=== PATIENT | female | born 1930 | race Caucasian/White ===

== ENCOUNTER 2017-05-24 11:28 | Outpatient (CLI) | payer MEDICARE, BC ==
--- NOTE | 2017-05-24 13:48 | CT ---
HIGH RESOLUTION CHEST CT WITHOUT CONTRAST: Comparison: None. History: Productive cough and bronchiectasis. Technique: Multiple contiguous axial images were obtained in a high resolution chest CT without cont rast. Thin slices were taken at large intervals in the spine and prone positions. FINDINGS: The heart is normal in size. No hilar or mediastinal lymphadenopathy are appreciated on this limited noncontrast examination. Calcifications are seen in the aorta. Emphysematous changes are seen in the lungs. No significant increased interstitial thickening is see n in the lung. Bronchiectasis is seen in the anterior aspect of the right middle lobe. No other area s of bronchiectasis are present. No suspicious pulmonary nodules are seen. The patient is status post cholecystectomy. The visualized subdiaphragmatic structures are unremarka ble. Degenerative changes are seen in the spine. The chest wall soft tissues are unremarkable. IMPRESSION: 1. Mild bronchiectasis in the right middle lobe. 2. Emphysema. POS: [facility]
== END 2017-05-24 11:29 | disposition home or self-care (01) ==
LOC: CT 11:28
PROVIDERS: ATTEND Internal Medicine Critical Care Medicine
DX: J47.9 Bronchiectasis, uncomplicated (principal); J43.9 Emphysema, unspecified
CPT/HCPCS: 71250

== ENCOUNTER 2017-06-03 09:10 | Emergency (ER) | payer MEDICARE, BC ==
[2017-06-03] MEDS ORDERED: Ondansetron ODT 4 MG TAB ONE (10:38)
--- NOTE | 2017-06-03 11:59 | RAD ---
THREE VIEWS RIGHT WRIST: HISTORY: Right wrist pain after fall. TECHNIQUE: AP, lateral, and oblique views of the right wrist are obtained. 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 There is a partially impacted transverse fracture of the distal right radius, compatible with a Neo es type fracture, with some impaction of proximal and distal fracture fragments. IMPRESSION: Impacted and mildly posteriorly displaced distal right radial Colles fracture. POS: [facility]
--- NOTE | 2017-06-03 12:11 | RAD ---
RIGHT HAND THREE VIEWS: HISTORY: An 87-year-old female with right wrist and arm pain following a fall. FINDINGS: There is severe bony demineralization, as well as some generalized arthrosis and degenerative change . There is no acute fracture or dislocation of the hand proper. There is a slightly comminuted fra cture of the radial metaepiphysis. There is some associated impaction. 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 IMPRESSION: 1. No acute fracture or dislocation of the hand proper. 2. Slightly comminuted, minimally impacted distal radial fracture. 3. 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 POS: [facility]
[2017-06-03] MEDS ORDERED: HYDROcodone/Acetaminophen 5/325 mg Tablet ONE (12:13)
== END 2017-06-03 13:15 | disposition home or self-care (01) ==
LOC: ERS 09:10
DX: S52.531A Colles' fracture of right radius, initial encounter for closed fracture (principal); E11.9 Type 2 diabetes mellitus without complications; K21.9 Gastro-esophageal reflux disease without esophagitis; E78.5 Hyperlipidemia, unspecified; I10 Essential (primary) hypertension; M06.9 Rheumatoid arthritis, unspecified; J45.909 Unspecified asthma, uncomplicated; F32.9 Major depressive disorder, single episode, unspecified; Z79.84 Long term (current) use of oral hypoglycemic drugs; Z79.899 Other long term (current) drug therapy; W18.30XA Fall on same level, unspecified, initial encounter; Y92.89 Other specified places as the place of occurrence of the external cause
CPT/HCPCS: 29125; 96372; J2270; Q0162

== ENCOUNTER 2017-08-08 17:15 | Outpatient (CLI) | payer MEDICARE, BC | END 2017-08-08 17:16 | disposition home or self-care (01) | LOC: BICMAMMO 17:15 | PROVIDERS: ATTEND Internal Medicine Rheumatology | DX: Z13.820 Encounter for screening for osteoporosis (principal); M81.0 Age-related osteoporosis without current pathological fracture | CPT/HCPCS: 77080 ==

== ENCOUNTER 2017-09-07 15:05 | Outpatient (CLI) | payer MEDICARE, BC | END 2017-09-07 15:06 | disposition home or self-care (01) | LOC: LABBT 15:05 | PROVIDERS: ATTEND Surgery | DX: Z01.818 Encounter for other preprocedural examination (principal); N76.4 Abscess of vulva | CPT/HCPCS: 93005; 93010 ==

== ENCOUNTER → 2017-09-08 | Day surgery (SDC) | payer MEDICARE, BC ==
[~2017-09-08] MED LIST: CEFAZOLIN/Water 2 GM/20 ML SYRINGE ONE; Dexamethasone 20 MG/5 ML VIAL ONE; Fentanyl 100 MCG/2 ML VIAL ONE; Glycopyrrolate 0.2 MG/ML 5 ML SYRINGE ONE; Lidocaine 1% PF 5 ML VIAL ONE; Lidocaine 2% w/Epinephrine 1:200K 20 ML VIAL ONE; Midazolam HCl 2 mg/2 ml Vial ONE; Ondansetron HCl/PF 4 MG/2 ML Vial ONE; Propofol 200 MG/20 ML VIAL ONE
[2017-09-08 10:14] LABS: Hemoglobin 12.1 g/dL (12.0-16.0); Mean Corpuscular HGB CONC 32.3 g/dL (32.0-36.0); Mean Corpuscular Hemoglobin 29.9 pg (27.0-31.0); Mean Corpuscular Volume 92.6 fl (81.0-99.0); Mean Platelet Volume 7.9 fL (7.4-10.4); Platelet Count 217 thou/uL (130-400); Red Blood Cell (RBC) Count 4.05 mill/uL (4.20-5.40); White Blood Cell (WBC) Count 6.5 thou/uL (4.8-10.8)
[2017-09-08 10:34] LABS: Band 1 % (5-11); Lymphocytes 21 % (21-51); MDiff Complete? YES; Monocytes 7 % (0-10); Neutrophil 66 % (42-75); PLT Morphology Comment Appears Adequate; Reactive Lymphocytes 5 % (0-10)
--- NOTE | 2017-09-08 12:56 | OP ---
PREOPERATIVE DIAGNOSIS: Right labial abscess. SURGEON: Олег Louis M.D. PROCEDURE PERFORMED: Incision and drainage of right labial abscess. INDICATIONS: An 87-year-old female with a 2-month history of draining abscess right labia. FINDINGS: The cavity was well drained. There was just opened up widely and irrigated. PROCEDURE IN DETAIL: After informed consent was obtained, the patient was taken to the operating arthur m and given general mask anesthesia, placed in the lithotomy position. Her groin area was prepped an d draped in the usual fashion. Local anesthesia infiltrated as with 0.5% Marcaine. An elliptical in cision was performed. The subcu divided sharply. The indurated tissue was excised. The cavity was cultured. Hemostasis achieved with electrocautery. The wound thoroughly irrigated and packed open w ith Betadine gauze and damp to dry, sterile bandage applied. The patient tolerated the procedure wel l and transferred to recovery in good condition. Sponge and needle count verified correct x2.
== END ==
LOC: SDC 08:42
PROVIDERS: ATTEND Surgery
PROC: 0U9MXZZ Drainage of Vulva, External Approach (ICD-10-PCS; principal; 2017-09-08)
DX: N76.4 Abscess of vulva (principal); N39.46 Mixed incontinence; E11.9 Type 2 diabetes mellitus without complications; G30.9 Alzheimer's disease, unspecified; F02.80 Dementia in other diseases classified elsewhere, unspecified severity, without behavioral disturbance, psychotic disturbance, mood disturbance, and anxiety; F41.9 Anxiety disorder, unspecified; F32.9 Major depressive disorder, single episode, unspecified; M06.9 Rheumatoid arthritis, unspecified; M81.0 Age-related osteoporosis without current pathological fracture; I87.2 Venous insufficiency (chronic) (peripheral); J45.909 Unspecified asthma, uncomplicated; G47.30 Sleep apnea, unspecified; Z79.84 Long term (current) use of oral hypoglycemic drugs; Z79.51 Long term (current) use of inhaled steroids; Z79.2 Long term (current) use of antibiotics; Z79.899 Other long term (current) drug therapy; Z88.1 Allergy status to other antibiotic agents; Z88.2 Allergy status to sulfonamides; Z88.8 Allergy status to other drugs, medicaments and biological substances; Z98.41 Cataract extraction status, right eye; Z98.42 Cataract extraction status, left eye; Z96.1 Presence of intraocular lens; Z96.651 Presence of right artificial knee joint; Z90.49 Acquired absence of other specified parts of digestive tract; Z90.710 Acquired absence of both cervix and uterus; Z90.722 Acquired absence of ovaries, bilateral; Z90.79 Acquired absence of other genital organ(s); Z98.890 Other specified postprocedural states; Z85.3 Personal history of malignant neoplasm of breast; Z92.3 Personal history of irradiation
CPT/HCPCS: 85025; 87070; 87077; 87186; 87205; J0131; J1100; J2001; J2250; J2405; J2704; J3010

== ENCOUNTER 2017-10-20 14:28 | Outpatient (CLI) | payer MEDICARE, BC | END 2017-10-20 14:29 | disposition home or self-care (01) | LOC: BICMAMMO 14:28 | PROVIDERS: ATTEND Internal Medicine | DX: Z12.31 Encounter for screening mammogram for malignant neoplasm of breast (principal) | CPT/HCPCS: 77063; 77067 ==

== ENCOUNTER 2018-01-16 09:05 | Emergency (ER) | payer MEDICARE, BC | END 2018-01-16 13:42 | disposition home or self-care (01) | LOC: ERS 09:05 | DX: R13.10 Dysphagia, unspecified (principal); E11.9 Type 2 diabetes mellitus without complications; K21.9 Gastro-esophageal reflux disease without esophagitis; E78.5 Hyperlipidemia, unspecified; I10 Essential (primary) hypertension; J45.909 Unspecified asthma, uncomplicated; F32.9 Major depressive disorder, single episode, unspecified | CPT/HCPCS: 93005 ==

== ENCOUNTER 2018-03-29 14:36 | Emergency (ER) | payer MEDICARE, BC | END 2018-03-29 15:48 | disposition home or self-care (01) | LOC: ERS 14:36 | DX: K21.9 Gastro-esophageal reflux disease without esophagitis (principal); J04.0 Acute laryngitis; E11.9 Type 2 diabetes mellitus without complications; E78.5 Hyperlipidemia, unspecified; I10 Essential (primary) hypertension; J45.909 Unspecified asthma, uncomplicated; F32.9 Major depressive disorder, single episode, unspecified; Z79.899 Other long term (current) drug therapy | CPT/HCPCS: 99283 ==

== ENCOUNTER 2018-03-30 13:49 | Outpatient (CLI) | payer MEDICARE, BC | END 2018-03-30 13:50 | disposition home or self-care (01) | LOC: BICRAD 13:49 | PROVIDERS: ATTEND Internal Medicine | DX: R05 Cough (principal); R49.0 Dysphonia; I77.810 Thoracic aortic ectasia | CPT/HCPCS: 71046 ==

== ENCOUNTER 2018-07-31 01:58 | Emergency (ER) | payer MEDICARE, BC ==
[2018-07-31 03:06] LABS: #Basophils 0.1 thou/uL (0.0-0.2); #Eosinphils 0.3 thou/uL (0.0-0.7); #Lymphocytes 1.9 thou/uL (1.20-3.40); #Neutrophils 4.5 thou/uL (1.40-6.50); %Basophils 1.3 % (0.0-1.0); %Eosinophils 3.6 % (0.0-10.0); %Lymphocytes 24.2 % (21.0-51.0); %Monocytes 13.3 % (0.0-10.0); %Neutrophils 57.6 % (42.0-75.0); Mean Corpuscular HGB CONC 34.3 g/dL (32.0-36.0); Mean Corpuscular Hemoglobin 32.1 pg (27.0-31.0); Mean Corpuscular Volume 93.5 fL (78.0-98.0); Mean Platelet Volume 7.9 fL (7.4-10.4); Platelet Count 196 thou/uL (130-400); RBC Distribution Width 11.8 % (11.5-14.5); Red Blood Cell (RBC) Count 4.06 mill/uL (4.20-5.40); White Blood Cell (WBC) Count 7.8 thou/uL (4.8-10.8)
[2018-07-31 03:41] LABS: ALT (SGPT) 18 U/L (8-55); AST (SGOT) 21 U/L (5-34); Albumin 4.1 g/dL (3.4-4.8); Alkaline Phosphatase 79 U/L (40-150); Anion Gap 11 mmol/L (10-20); BUN (Urea Nitrogen) 19 mg/dL (9.8-20.1); Bilirubin, Total 0.3 mg/dL (0.2-1.2); Calc. Creatinine Clearance 0 mL/min (70-130); Calcium 9.9 mg/dL (7.8-10.44); Carbon Dioxide 27 mmol/L (23-31); Chloride 107 mmol/L (98-107); Estimated GFR-MDRD 67; Globulin 2.4 g/dL (2.4-3.5); Glucose 110 mg/dL (83-110); Magnesium 2.2 mg/dL (1.6-2.6); Potassium 4.1 mmol/L (3.5-5.1); Protein, Total 6.5 g/dL (6.0-8.3); Sodium 141 mmol/L (136-145)
[2018-07-31 03:53] LABS: Bilirubin Negative (Negative); Blood, Urine Negative (Negative); Clarity CLOUDY (Clear); Glucose, Urine (Dipstick) Negative (Negative); Leukocyte Large (Negative); Nitrite Negative (Negative); Protein, Urine (Dipstick) Trace mg/dL (Neg-Trace); Specific Gravity, Urine 1.028 (1.002-1.036); Urobilinogen 0.2 mg/dL (0.2-1.0); pH, Urine 6.5 (5.0-9.0)
[2018-07-31 03:56] LABS: Bacteria/HPF None Seen HPF (None Seen); Hyaline Casts/LPF 4-6 HYALINE CAST LPF (0-3 Hyaline); Pathc Cast-AUWi Flag 1.16 (0-2.49); Squamous Epithelial 0-3 HPF (0-3)
--- NOTE | 2018-07-31 08:27 | CT ---
PRELIMINARY REPORT/[facility]/EMERGENTY AFTER-HOURS PROCEDURE CT Cervical Spine Without Intravenous Contrast EXAM DATE/TIME: 07/31/2018 2:33 AM CLINICAL HISTORY: 88 years old, female; Injury or trauma; Fall; Initial encounter; Abrasion; Patient HX: Fall from [facility], PT hit back of her head, no loc TECHNIQUE: Axial computed tomography images of the cervical spine without intravenous contrast. COMPARISON: No relevant prior studies available. FINDINGS: Vertebrae: No fracture. Discs/Spinal canal/Neural foramina: No spinal stenosis. No neural foraminal narrowing. Soft tissues: Unremarkable. Thyroid: Multiple subcentimeter thyroid nodules. Lungs: Lung apices are normal. IMPRESSION: 1. Multiple subcentimeter thyroid nodules. 2. No fracture. Thank you for allowing us to participate in the care of your patient. Dictated and Authenticated by: Alexandru Bryant MD 07/31/2018 2:48 AM Central Time ([place] & [place]) FINAL REPORT EMERGENCY AFTER HOURS NONCONTRAST CT CERVICAL SPINE: Date: 07/31/18 HISTORY: Injury after fall. Hit head. TECHNIQUE: Contiguous axial CT images are obtained through the cervical spine from the skull base to the T1-2 le slim. Sagittal and coronal reformatted images are provided. IMPRESSION: 1. Multilevel degenerative changes with multilevel moderate and severe degrees of neural foraminal n arrowing related to prominent facet hypertrophic changes and posterior osteophyte formation. 2. Anterior subluxation of C4 on C5, likely attributable to prominent degenerative changes at this l evel. No additional level of subluxation is seen. There is slight reversal of the normal cervical bebeto dotic curvature centered at the level of the C5 vertebral body. 3. No acute fracture visualized. 4. Suggestion of fusion of the C5 and C6 vertebral bodies. 5. Subcentimeter hypodense nodules in each lobe of the thyroid gland. 6. Prevertebral soft tissues are within normal limits. 7. Mild scarring left lung apex. Findings are in agreement with the preliminary report by Noel. POS: [facility]
--- NOTE | 2018-07-31 08:29 | CT ---
PRELIMINARY REPORT/[facility]/EMERGENTY AFTER-HOURS PROCEDURE CT Head Without Intravenous Contrast EXAM DATE/TIME: 07/31/2018 2:35 AM CLINICAL HISTORY: 88 years old, female; Injury or trauma; Fall; Initial encounter; Abrasion; Head, generalized; Patient HX: Fall from standing, PT hit back of her head, no loc TECHNIQUE: Axial computed tomography images of the head/brain without intravenous contrast. COMPARISON: No relevant prior studies available. FINDINGS: Brain: Volume loss and chronic small vessel ischemic change. No brain edema. No intracranial hemorrha ge. Ventricles: Normal. No ventriculomegaly. Bones/joints: Normal. No acute fracture. Sinuses: Normal as visualized. No acute sinusitis. Mastoid air cells: Normal as visualized. No mastoid effusion. Soft tissues: Normal. IMPRESSION: No acute brain findings. Thank you for allowing us to participate in the care of your patient. Dictated and Authenticated by: Alexandru Bryant MD 07/31/2018 2:45 AM Central Time ([place] & [place]) FINAL REPORT BY DR. CRUZ EMERGENCY AFTER HOURS STUDY CT BRAIN NONCONTRAST: HISTORY: 88-year-old female status post acute head trauma from fall. FINDINGS: There is no midline shift or any other mass effect. There is no evidence of acute intracranial hemor rhage, large cortical infarct, obstructive hydrocephalus, or extraaxial fluid collection. The calvar ium is intact. There is diffuse parenchymal volume loss. There are low attenuation areas in the whi te matter. These are nonspecific, but in a patient of this age, they are probably chronic ischemic w todd matter changes due to microvascular atherosclerosis. This report agrees with the preliminary report by Noel. IMPRESSION: 1. No acute intracranial findings. 2. Involutional changes and chronic ischemic white matter changes. bhaskar POS: [facility]
--- NOTE | 2018-07-31 08:45 | RAD ---
UPRIGHT FRONTAL CHEST RADIOGRAPH: Date: 07/31/18 COMPARISON: 07/09/10 and 03/30/18. HISTORY: Fall, trauma, pain. FINDINGS: Old lateral right-sided rib fractures. No pneumothorax, pleural fluid, lobar consolidation, or alveol ar edema. Postoperative clips in the left axillary region. IMPRESSION: No acute findings. Stable appearance of the chest. POS: [facility]
== END 2018-07-31 04:14 | disposition home or self-care (01) ==
LOC: ERS 01:58
DX: S06.0X0A Concussion without loss of consciousness, initial encounter (principal); S00.93XA Contusion of unspecified part of head, initial encounter; K21.9 Gastro-esophageal reflux disease without esophagitis; E78.5 Hyperlipidemia, unspecified; I10 Essential (primary) hypertension; J45.909 Unspecified asthma, uncomplicated; F32.9 Major depressive disorder, single episode, unspecified; Z79.899 Other long term (current) drug therapy; W01.190A Fall on same level from slipping, tripping and stumbling with subsequent striking against furniture, initial encounter
CPT/HCPCS: 36415; 70450; 71045; 72125; 80053; 81003; 81015; 83735; 85025; 93005

== ENCOUNTER 2018-09-26 13:27 | Outpatient (CLI) | payer MEDICARE, BC ==
--- NOTE | 2018-09-26 16:02 | RAD ---
PA AND LATERAL CHEST: HISTORY: Cough. COMPARISON: 07/31/2018 FINDINGS: The heart size is enlarged. There is elevation of the right hemidiaphragm. The lungs are well expan ded without focal areas of consolidation, pneumothoraces, or pleural effusions. There are degenerati ve changes in the spine. Postop changes are seen in the lumbar spine. IMPRESSION: No radiographic evidence of acute cardiopulmonary process. POS: [facility]
== END 2018-09-26 13:28 | disposition home or self-care (01) ==
LOC: BICRAD 13:27
PROVIDERS: ATTEND Internal Medicine
DX: R05 Cough (principal)
CPT/HCPCS: 71046

== ENCOUNTER 2018-10-23 14:05 | Outpatient (CLI) | payer MEDICARE, BC | END 2018-10-23 14:06 | disposition home or self-care (01) | LOC: BICMAMMO 14:05 | PROVIDERS: ATTEND Internal Medicine | DX: Z12.31 Encounter for screening mammogram for malignant neoplasm of breast (principal); Z85.3 Personal history of malignant neoplasm of breast | CPT/HCPCS: 77063; 77067 ==

== ENCOUNTER 2019-01-22 12:59 | Emergency (ER) | payer MEDICARE, BC ==
--- NOTE | 2019-01-22 13:54 | RAD ---
Chest 2 views HISTORY: Cough. COMPARISON: 09/26/2018. FINDINGS: Cardiac silhouette is upper limits of normal in size and pulmonary vasculature is unremarka ble. Mediastinum is midline. Right hemidiaphragm remains lobulated and slightly elevated anteriorly. No confluent airspace consolidation, pneumothorax, or pleural fluid. Lungs remain hyperin flated. Metallic clips at the left axilla. IMPRESSION: Pulmonary hyperinflation and other chronic-type findings are stable. No active cardiopulm onary abnormalities are demonstrated.
== END 2019-01-22 15:52 | disposition home or self-care (01) ==
LOC: ERS 12:59
DX: J20.9 Acute bronchitis, unspecified (principal); F32.9 Major depressive disorder, single episode, unspecified; K21.9 Gastro-esophageal reflux disease without esophagitis; E78.5 Hyperlipidemia, unspecified; J45.909 Unspecified asthma, uncomplicated; M06.9 Rheumatoid arthritis, unspecified; I10 Essential (primary) hypertension; Z79.899 Other long term (current) drug therapy
CPT/HCPCS: 71046; 94640; J7620

== ENCOUNTER 2019-05-06 09:28 | Emergency (ER) | payer MEDICARE, BC | END 2019-05-06 10:52 | disposition home or self-care (01) | LOC: ERS 09:28 | DX: J32.9 Chronic sinusitis, unspecified (principal); K21.9 Gastro-esophageal reflux disease without esophagitis; E78.5 Hyperlipidemia, unspecified; I10 Essential (primary) hypertension; J45.909 Unspecified asthma, uncomplicated; F32.9 Major depressive disorder, single episode, unspecified; Z79.899 Other long term (current) drug therapy; Z79.51 Long term (current) use of inhaled steroids | CPT/HCPCS: 99283 ==

== ENCOUNTER 2021-04-29 08:50 | Observation (INO) | payer MEDICARE, BC ==
[2021-04-29 09:55] LABS: #Basophils 0.1 thou/uL (0.0-0.2); #Eosinphils 0.2 thou/uL (0.0-0.7); #Lymphocytes 1.7 thou/uL (1.20-3.40); #Monocytes 0.9 thou/uL (0.11-0.59); #Neutrophils 3.9 thou/uL (1.40-6.50); %Eosinophils 3.5 % (0.0-10.0); %Lymphocytes 24.7 % (21.0-51.0); %Monocytes 13.4 % (0.0-10.0); %Neutrophils 57.4 % (42.0-75.0); Hemoglobin 12.9 g/dL (12.0-16.0); Mean Corpuscular HGB CONC 33.2 g/dL (32.0-36.0); Mean Corpuscular Hemoglobin 31.4 pg (27.0-31.0); Mean Corpuscular Volume 94.5 fL (78.0-98.0); Platelet Count 239 thou/uL (130-400); RBC Distribution Width 12.6 % (11.5-14.5); Red Blood Cell (RBC) Count 4.12 mill/uL (4.20-5.40); White Blood Cell (WBC) Count 6.7 thou/uL (4.8-10.8)
[2021-04-29 10:15] LABS: ALT (SGPT) 17 U/L (8-55); AST (SGOT) 14 U/L (5-34); Albumin 3.7 g/dL (3.4-4.8); Alkaline Phosphatase 85 U/L (40-110); Anion Gap 12 mmol/L (10-20); BUN (Urea Nitrogen) 19 mg/dL (9.8-20.1); Bilirubin, Total 0.5 mg/dL (0.2-1.2); Calc. Creatinine Clearance 0 mL/min (70-130); Calcium 9.7 mg/dL (7.8-10.44); Carbon Dioxide 29 mmol/L (23-31); Chloride 107 mmol/L (98-107); Globulin 2.4 g/dL (2.4-3.5); Glucose 105 mg/dL (83-110); Potassium 4.2 mmol/L (3.5-5.1); Protein, Total 6.1 g/dL (5.8-8.1); Sodium 144 mmol/L (136-145)
[2021-04-29] MEDS ORDERED: Ondansetron ODT 4 MG TAB PO PRN (12:26)
[2021-04-29] MEDS ORDERED: Ondansetron PF 4 MG/2 ML Vial IVP PRN (12:26)
[2021-04-29] MEDS ORDERED: Acetaminophen 325 MG TAB PO PRN (12:26)
[2021-04-29] MEDS ORDERED: Acetaminophen 650 MG Suppository PR PRN (12:26)
[2021-04-29] MEDS ORDERED: hydrALAZINE 20 MG/ML VIAL SLOW IVP PRN ×2 (12:31→16:50)
[2021-04-29 13:03] LABS: Troponin I Less than 0.010 ng/mL (< 0.028)
[2021-04-29 15:10] VITALS: BMI 41.5
[2021-04-29 16:50] LABS: Troponin I Less than 0.010 ng/mL (< 0.028)
[2021-04-29] MEDS ORDERED: Atorvastatin Calcium 40 MG TAB PO SCH (21:00)
[2021-04-30 04:04] LABS: #Eosinphils 0.2 thou/uL (0.0-0.7); #Lymphocytes 1.8 thou/uL (1.20-3.40); #Neutrophils 4.9 thou/uL (1.40-6.50); %Basophils 0.4 % (0.0-1.0); %Eosinophils 3.1 % (0.0-10.0); %Lymphocytes 22.8 % (21.0-51.0); %Monocytes 12.5 % (0.0-10.0); %Neutrophils 61.2 % (42.0-75.0); Hemoglobin 12.8 g/dL (12.0-16.0); Mean Corpuscular HGB CONC 32.9 g/dL (32.0-36.0); Mean Corpuscular Hemoglobin 31.1 pg (27.0-31.0); Mean Corpuscular Volume 94.5 fL (78.0-98.0); Mean Platelet Volume 8.4 fL (7.4-10.4); Platelet Count 242 thou/uL (130-400); RBC Distribution Width 12.8 % (11.5-14.5); Red Blood Cell (RBC) Count 4.11 mill/uL (4.20-5.40)
[2021-04-30 04:26] LABS: Anion Gap 8 mmol/L (10-20); BUN (Urea Nitrogen) 19 mg/dL (9.8-20.1); Calc. Creatinine Clearance 72 mL/min (70-130); Calcium 9.7 mg/dL (7.8-10.44); Carbon Dioxide 29 mmol/L (23-31); Chloride 108 mmol/L (98-107); Cholesterol 133 mg/dl (< 200 Desired); Glucose 118 mg/dL (83-110); HDL Cholesterol 44 mg/dL (>60 Neg Risk); LDL Cholesterol, Calculated 73 mg/dL; Potassium 3.9 mmol/L (3.5-5.1); Sodium 141 mmol/L (136-145); Triglycerides 80 mg/dL (Less than 150)
[2021-04-30] MEDS ORDERED: Losartan 25 MG TAB PO SCH (09:00)
[2021-04-30] MEDS ORDERED: Non-Formulary Item 1 EACH (Biotin [Biotin] 10,000 MCG Capsule) PO SCH (09:00)
[2021-04-30 16:00] VITALS: BP 139/67; TEMP 98.2
[2021-04-30] MEDS ORDERED: Atorvastatin Calcium 20 MG TAB PO SCH (21:00)
== END 2021-04-30 17:38 ==
LOC: ERS 08:50 → 2NO 11:49
PROVIDERS: ADMIT Internal Medicine; ATTEND Hospitalist
DX: I62.03 Nontraumatic chronic subdural hemorrhage (principal); R41.82 Altered mental status, unspecified; I10 Essential (primary) hypertension; E78.5 Hyperlipidemia, unspecified; K21.9 Gastro-esophageal reflux disease without esophagitis; M06.9 Rheumatoid arthritis, unspecified; J45.909 Unspecified asthma, uncomplicated; F03.90 Unspecified dementia, unspecified severity, without behavioral disturbance, psychotic disturbance, mood disturbance, and anxiety; G92 Toxic encephalopathy; D50.9 Iron deficiency anemia, unspecified; E66.01 Morbid (severe) obesity due to excess calories; Z68.41 Body mass index [BMI] 40.0-44.9, adult; Z79.83 Long term (current) use of bisphosphonates; Z79.84 Long term (current) use of oral hypoglycemic drugs; Z79.899 Other long term (current) drug therapy; Z88.1 Allergy status to other antibiotic agents; Z88.2 Allergy status to sulfonamides; Z88.6 Allergy status to analgesic agent; Z88.8 Allergy status to other drugs, medicaments and biological substances
CPT/HCPCS: 70450; 70551; 71045; 80048; 80061; 84484 ×2; 85025; 93005; 93306; 95712; 95819; 95957; 96374; 96376; 97139 ×3; 97535; 99285; G0378 ×3; 36415; 80053; 84443; J0360

== ENCOUNTER 2021-06-29 09:21 | Observation (INO) | payer MEDICARE, BC ==
[2021-06-29 10:21] LABS: Bacteria/HPF None Seen HPF (None Seen); Bilirubin Negative (Negative); Blood, Urine Negative (Negative); Clarity Clear (Clear); Glucose, Urine (Dipstick) Normal (Negative); Ketone, Urine Negative (Negative); Leukocyte 75 Leu/uL (Negative); Nitrite Negative (Negative); Protein, Urine (Dipstick) Negative (Neg-Trace); RBC/HPF 0-3 HPF (0-3); Specific Gravity, Urine 1.021 (1.002-1.036); Squamous Epithelial 0-3 HPF (0-3); Urobilinogen Normal mg/dL (Less than 2); pH, Urine 6.5 (5.0-9.0)
[2021-06-29] MEDS ORDERED: cefTRIAXone\\ROCEPHIN 2 GM VIAL ONE (10:54)
[2021-06-29 11:08] LABS: #Basophils 0.1 thou/uL (0.0-0.2); #Eosinphils 0.2 thou/uL (0.0-0.7); #Lymphocytes 1.8 thou/uL (1.20-3.40); #Monocytes 0.8 thou/uL (0.11-0.59); #Neutrophils 5.1 thou/uL (1.40-6.50); %Basophils 0.8 % (0.0-1.0); %Eosinophils 2.6 % (0.0-10.0); %Lymphocytes 22.2 % (21.0-51.0); %Monocytes 10.3 % (0.0-10.0); %Neutrophils 64.2 % (42.0-75.0); Mean Corpuscular HGB CONC 33.1 g/dL (32.0-36.0); Mean Corpuscular Hemoglobin 31.2 pg (27.0-31.0); Mean Corpuscular Volume 94.3 fL (78.0-98.0); Platelet Count 261 thou/uL (130-400); RBC Distribution Width 12.3 % (11.5-14.5); Red Blood Cell (RBC) Count 4.16 mill/uL (4.20-5.40); White Blood Cell (WBC) Count 7.9 thou/uL (4.8-10.8)
[2021-06-29 11:26] LABS: ALT (SGPT) 17 U/L (8-55); AST (SGOT) 16 U/L (5-34); Albumin 3.7 g/dL (3.4-4.8); Alkaline Phosphatase 70 U/L (40-110); Anion Gap 11 mmol/L (10-20); BUN (Urea Nitrogen) 16 mg/dL (9.8-20.1); Bilirubin, Total 0.4 mg/dL (0.2-1.2); Calc. Creatinine Clearance 0 mL/min (70-130); Calcium 9.4 mg/dL (7.8-10.44); Carbon Dioxide 27 mmol/L (23-31); Chloride 107 mmol/L (98-107); Glucose 93 mg/dL (83-110); Potassium 4.3 mmol/L (3.5-5.1); Protein, Total 5.7 g/dL (5.8-8.1); Sodium 141 mmol/L (136-145)
[2021-06-29] MEDS ORDERED: Bisacodyl 10 MG SUPP PR PRN (12:33)
[2021-06-29] MEDS ORDERED: Bisacodyl 5 MG TAB PO PRN (12:33)
[2021-06-29] MEDS ORDERED: Senokot S 8.6-50 MG TAB PO PRN (12:33)
[2021-06-29] MEDS ORDERED: Ondansetron PF 4 MG/2 ML Vial IVP PRN (12:33)
[2021-06-29] MEDS ORDERED: Acetaminophen 325 MG TAB PO PRN (12:33)
[2021-06-29] MEDS ORDERED: HumaLOG 300 UNITS/3 ML VIAL SC PRN (12:53)
[2021-06-29] MEDS ORDERED: Dextrose 5% in Water 1,000 ML IV PRN (12:53)
[2021-06-29] MEDS ORDERED: Dextrose 50% Abboject 50 ML SYRINGE SLOW IVP PRN (12:53)
[2021-06-29 14:34] VITALS: BMI 39.0
[2021-06-29 15:01] LABS: INR-International Normal Ratio 1.1; Prothrombin Time 13.9 sec (12.0-14.7)
[2021-06-29 15:02] LABS: PTT 30.4 sec (22.9-36.1)
[2021-06-29 15:26] LABS: SARS-CoV-2 NAA Rapid Test Not Detected (NotDetected)
[2021-06-29] MEDS ORDERED: traZODone HCl 50 MG TAB PO PRN (19:03)
[2021-06-29] MEDS ORDERED: Melatonin 3 MG TAB PO PRN (20:48)
[2021-06-29] MEDS ORDERED: Mometasone 200 MCG/Formoterol 5 MCG 120 PUFF INHALER INH SCH (21:00)
[2021-06-29] MEDS ORDERED: Atorvastatin Calcium 40 MG TAB PO SCH (21:00)
[2021-06-30 06:22] LABS: #Eosinphils 0.1 thou/uL (0.0-0.7); #Lymphocytes 1.6 thou/uL (1.20-3.40); #Monocytes 0.8 thou/uL (0.11-0.59); #Neutrophils 4.7 thou/uL (1.40-6.50); %Basophils 0.2 % (0.0-1.0); %Lymphocytes 22.1 % (21.0-51.0); %Monocytes 11.2 % (0.0-10.0); %Neutrophils 64.5 % (42.0-75.0); Hemoglobin 12.7 g/dL (12.0-16.0); Mean Corpuscular HGB CONC 32.1 g/dL (32.0-36.0); Mean Corpuscular Hemoglobin 30.5 pg (27.0-31.0); Mean Corpuscular Volume 95.2 fL (78.0-98.0); Mean Platelet Volume 7.8 fL (7.4-10.4); Platelet Count 250 thou/uL (130-400); RBC Distribution Width 12.3 % (11.5-14.5); Red Blood Cell (RBC) Count 4.18 mill/uL (4.20-5.40); White Blood Cell (WBC) Count 7.3 thou/uL (4.8-10.8)
[2021-06-30 06:29] LABS: Hemoglobin A1c 5.9 % (4.0-6.0)
[2021-06-30 06:46] LABS: ALT (SGPT) 18 U/L (8-55); AST (SGOT) 16 U/L (5-34); Albumin 3.6 g/dL (3.4-4.8); Alkaline Phosphatase 69 U/L (40-110); Anion Gap 10 mmol/L (10-20); BUN (Urea Nitrogen) 15 mg/dL (9.8-20.1); Bilirubin, Total 0.4 mg/dL (0.2-1.2); Calc. Creatinine Clearance 71 mL/min (70-130); Calcium 8.8 mg/dL (7.8-10.44); Carbon Dioxide 27 mmol/L (23-31); Cardiac Risk 3.4 (Less than 4.5); Chloride 108 mmol/L (98-107); Cholesterol 122 mg/dl (< 200 Desired); Globulin 1.9 g/dL (2.4-3.5); Glucose 109 mg/dL (83-110); HDL Cholesterol 36 mg/dL (>60 Neg Risk); LDL Cholesterol, Calculated 68 mg/dL; Magnesium 2.2 mg/dL (1.6-2.6); Phosphorus 3.1 mg/dL (2.3-4.7); Protein, Total 5.5 g/dL (5.8-8.1); Sodium 141 mmol/L (136-145); Triglycerides 91 mg/dL (Less than 150)
[2021-06-30] MEDS ORDERED: Ferrous Gluconate 324 MG TAB PO SCH (08:00)
[2021-06-30] MEDS ORDERED: Folic Acid 1 MG TAB PO SCH (09:00)
[2021-06-30] MEDS ORDERED: Losartan 25 MG TAB PO SCH (09:00)
[2021-06-30] MEDS ORDERED: Multivit, Therapeutic 1 TAB PO SCH (09:00)
[2021-06-30] MEDS ORDERED: Cyanocobalamin (Vitamin B-12) 1,000 MCG TAB PO SCH (09:00)
[2021-06-30] MEDS ORDERED: Cholecalciferol 1,000 UNITS (25 MCG) TAB PO SCH (09:00)
[2021-06-30] MEDS ORDERED: PARoxetine 20 MG TAB PO SCH (09:00)
[2021-06-30] MEDS ORDERED: hydrALAZINE 20 MG/ML VIAL SLOW IVP PRN (11:51)
[2021-06-30] MEDS ORDERED: Carvedilol 3.125 MG TAB PO SCH ×2 (14:00→17:00)
[2021-06-30 15:53] VITALS: TEMP 98.7
[2021-06-30 16:48] VITALS: BP 201/92
[2021-06-30] MEDS ORDERED: Aspirin 81 mg Enteric Coated Tablet PO SCH (17:30)
== END 2021-06-30 18:00 | disposition home or self-care (01) ==
LOC: ERS 09:21 → SUATTDRO 09:21 → NEURO 12:21
PROVIDERS: ADMIT Family Medicine; ATTEND Family Medicine
DX: G93.40 Encephalopathy, unspecified (principal); I62.03 Nontraumatic chronic subdural hemorrhage; E11.9 Type 2 diabetes mellitus without complications; M06.9 Rheumatoid arthritis, unspecified; D50.9 Iron deficiency anemia, unspecified; G30.9 Alzheimer's disease, unspecified; F02.80 Dementia in other diseases classified elsewhere, unspecified severity, without behavioral disturbance, psychotic disturbance, mood disturbance, and anxiety; J45.909 Unspecified asthma, uncomplicated; M81.0 Age-related osteoporosis without current pathological fracture; I87.2 Venous insufficiency (chronic) (peripheral); K21.9 Gastro-esophageal reflux disease without esophagitis; I11.9 Hypertensive heart disease without heart failure; E78.5 Hyperlipidemia, unspecified; G47.30 Sleep apnea, unspecified; I47.1 Supraventricular tachycardia; Z79.83 Long term (current) use of bisphosphonates; Z79.899 Other long term (current) drug therapy; Z88.2 Allergy status to sulfonamides; Z88.6 Allergy status to analgesic agent; Z88.8 Allergy status to other drugs, medicaments and biological substances; Z20.822 Contact with and (suspected) exposure to COVID-19
CPT/HCPCS: 51701; 70450; 70551; 71045; 80053; 80061; 82962 ×2; 83036; 83605; 83735; 84100; 84484; 85025; 85610; 85730; 86850; 86900; 86901; 87086; 93005; 93880; 95712; 95819; 95957; 96365; 96375; 97110; 97116; 97139 ×3; 99285; G0378 ×3; U0002; 36415; 36416; 81003; 81015; 84443; J0360; J0696

== ENCOUNTER 2021-08-24 12:53 | Inpatient (IN) | payer MEDICARE, BC ==
[2021-08-24] MEDS ORDERED: Vancomycin 1 GM/200 ML BAG ONE (16:06)
[2021-08-24 16:17] LABS: #Eosinphils 0.1 thou/uL (0.0-0.7); #Lymphocytes 2.4 thou/uL (1.20-3.40); #Monocytes 2.1 thou/uL (0.11-0.59); #Neutrophils 12.1 thou/uL (1.40-6.50); %Basophils 0.1 % (0.0-1.0); %Eosinophils 0.4 % (0.0-10.0); %Lymphocytes 14.5 % (21.0-51.0); %Monocytes 12.6 % (0.0-10.0); %Neutrophils 72.4 % (42.0-75.0); Hemoglobin 12.5 g/dL (12.0-16.0); Mean Corpuscular HGB CONC 34.7 g/dL (32.0-36.0); Mean Corpuscular Hemoglobin 32.6 pg (27.0-31.0); Mean Corpuscular Volume 93.8 fL (78.0-98.0); Mean Platelet Volume 8.3 fL (7.4-10.4); Platelet Count 200 thou/uL (130-400); RBC Distribution Width 12.6 % (11.5-14.5); Red Blood Cell (RBC) Count 3.83 mill/uL (4.20-5.40); White Blood Cell (WBC) Count 16.6 thou/uL (4.8-10.8)
[2021-08-24 16:35] LABS: ALT (SGPT) 14 U/L (8-55); AST (SGOT) 16 U/L (5-34); Albumin 3.5 g/dL (3.4-4.8); Alkaline Phosphatase 81 U/L (40-110); Anion Gap 11 mmol/L (10-20); BUN (Urea Nitrogen) 16 mg/dL (9.8-20.1); Bilirubin, Total 0.8 mg/dL (0.2-1.2); Calc. Creatinine Clearance 0 mL/min (70-130); Calcium 9.6 mg/dL (7.8-10.44); Carbon Dioxide 30 mmol/L (23-31); Chloride 98 mmol/L (98-107); Globulin 2.8 g/dL (2.4-3.5); Glucose 127 mg/dL (83-110); Potassium 3.4 mmol/L (3.5-5.1); Protein, Total 6.3 g/dL (5.8-8.1); Sodium 136 mmol/L (136-145)
[2021-08-24] MEDS ORDERED: Cefepime 2 GM VIAL ONE (17:05)
[2021-08-24] MEDS ORDERED: Sodium Chloride 0.9% 100 ML ONE (17:05)
[2021-08-24] MEDS ORDERED: Acetaminophen 325 MG TAB PO PRN (17:15)
[2021-08-24] MEDS ORDERED: Ondansetron PF 4 MG/2 ML Vial IVP PRN (17:15)
[2021-08-24] MEDS ORDERED: Ondansetron ODT 4 MG TAB SL PRN (17:15)
[2021-08-24] MEDS: Cefepime 2 GM in Sodium Chloride 0.9% 100 ML IVPB SCH (20:28)
[2021-08-24 23:21] VITALS: BMI 35.2
[2021-08-25] MEDS: Cefepime 2 GM in Sodium Chloride 0.9% 100 ML IVPB SCH ×2 (02:30→07:47)
[2021-08-25] MEDS ORDERED: Vancomycin 1 GM in Premix Bag 1 BAG IVPB SCH (04:00)
[2021-08-25] MEDS ORDERED: Albuterol Sulfate 2.5 mg/3 ml Neb NEB PRN (06:52)
[2021-08-25] MEDS ORDERED: Non-Formulary Item 1 EACH (Carboxymethylcellulos/Glycerin [Refresh Optive Eye Drops] 15 M EA EYE PRN (06:52)
[2021-08-25] MEDS ORDERED: Polyvinyl Alcohol 1.4%/Povidone 0.6% Opth Drops EA EYE PRN (07:33)
[2021-08-25] MEDS: PARoxetine 20 MG TAB PO SCH (07:53)
[2021-08-25] MEDS: Carvedilol 3.125 MG TAB PO SCH ×2 (07:53→17:42)
[2021-08-25] MEDS: Losartan 25 MG TAB PO SCH (07:54)
[2021-08-25] MEDS: Furosemide 40 MG TAB PO SCH (07:54)
[2021-08-25 08:21] LABS: #Basophils 0.1 thou/uL (0.0-0.2); #Eosinphils 0.3 thou/uL (0.0-0.7); #Lymphocytes 1.4 thou/uL (1.20-3.40); #Monocytes 1.4 thou/uL (0.11-0.59); #Neutrophils 8.3 thou/uL (1.40-6.50); %Basophils 0.6 % (0.0-1.0); %Eosinophils 2.9 % (0.0-10.0); %Lymphocytes 11.9 % (21.0-51.0); %Monocytes 12.4 % (0.0-10.0); %Neutrophils 72.2 % (42.0-75.0); Hemoglobin 11.8 g/dL (12.0-16.0); Mean Corpuscular HGB CONC 33.1 g/dL (32.0-36.0); Mean Corpuscular Hemoglobin 30.9 pg (27.0-31.0); Mean Corpuscular Volume 93.5 fL (78.0-98.0); Mean Platelet Volume 8.3 fL (7.4-10.4); Platelet Count 182 thou/uL (130-400); RBC Distribution Width 12.5 % (11.5-14.5); Red Blood Cell (RBC) Count 3.81 mill/uL (4.20-5.40); White Blood Cell (WBC) Count 11.6 thou/uL (4.8-10.8)
[2021-08-25 08:35] LABS: Anion Gap 8 mmol/L (10-20); BUN (Urea Nitrogen) 15 mg/dL (9.8-20.1); Calc. Creatinine Clearance 76 mL/min (70-130); Calcium 9.2 mg/dL (7.8-10.44); Carbon Dioxide 29 mmol/L (23-31); Chloride 102 mmol/L (98-107); Glucose 101 mg/dL (83-110); Magnesium 1.9 mg/dL (1.6-2.6); Potassium 3.1 mmol/L (3.5-5.1); Sodium 136 mmol/L (136-145)
[2021-08-25] MEDS ORDERED: Budesonide 0.25 MG/2 ML NEB NEB SCH (09:00)
[2021-08-25] MEDS ORDERED: Arformoterol 15 MCG/2 ML NEB NEB SCH (09:00)
[2021-08-25] MEDS ORDERED: Non-Formulary Item 1 EACH (Losartan Potassium [Cozaar] 100 MG Tablet) PO SCH (09:00)
[2021-08-25] MEDS ORDERED: Electrolyte Replacement Protocol 1 EACH FS SCH (09:45)
[2021-08-25] MEDS ORDERED: Potassium Chloride 20 MEQ TAB PO SCH ×2 (10:00→14:45)
[2021-08-25] MEDS: Polyethylene Glycol 3350 17 GM Packet PO SCH (10:53)
[2021-08-25] MEDS ORDERED: Magnesium 2 GM/50 ML 2 GM in Premix Bag 1 BAG IVPB SCH (11:00)
[2021-08-25 12:45] LABS: SARS-CoV-2 PCR by NAA Not Detected (NotDetected)
[2021-08-25] MEDS ORDERED: Potassium Chloride 10 MEQ in Premix Bag 1 BAG IVPB SCH (13:00)
[2021-08-25] MEDS: Potassium Chloride 10 MEQ in Premix Bag 1 BAG IVPB SCH ×2 (13:03→14:42)
[2021-08-25] MEDS ORDERED: SUGAMMADEX SODIUM 200 MG/2 ML VIAL ONE (14:08)
[2021-08-25] MEDS ORDERED: Fentanyl 100 MCG/2 ML VIAL ONE ×2 (14:08→14:58)
[2021-08-25] MEDS ORDERED: Famotidine/PF 20 mg/2ml Vial ONE (14:09)
[2021-08-25] MEDS ORDERED: Rocuronium Bromide 10 MG/ML (10ML VIAL) ONE (15:25)
[2021-08-25] MEDS ORDERED: Dexamethasone 20 MG/5 ML VIAL ONE (15:25)
[2021-08-25] MEDS ORDERED: Lidocaine 1% PF 5 ML VIAL ONE (15:25)
[2021-08-25] MEDS ORDERED: Ondansetron PF 4 MG/2 ML Vial ONE (15:25)
[2021-08-25] MEDS ORDERED: PROPOFOL 200 MG/20 ML VIAL ONE (15:25)
[2021-08-25] MEDS ORDERED: ePHEDrine 50 MG/ML VIAL ONE (15:25)
[2021-08-25] MEDS: Arformoterol 15 MCG/2 ML NEB NEB SCH (18:24)
[2021-08-25] MEDS: Budesonide 0.25 MG/2 ML NEB NEB SCH (18:24)
[2021-08-25] MEDS: Atorvastatin Calcium 40 MG TAB PO SCH (20:48)
[2021-08-25] MEDS: Donepezil HCl 5 MG TAB PO SCH (20:48)
[2021-08-26] MEDS: VANCOMYCIN 1.25 GM/250 ML BAG 1.25 GM in Premix Bag 1 BAG IVPB SCH (03:37)
[2021-08-26 03:50] LABS: #Lymphocytes 1.2 thou/uL (1.20-3.40); #Monocytes 0.6 thou/uL (0.11-0.59); #Neutrophils 7.7 thou/uL (1.40-6.50); %Basophils 0.1 % (0.0-1.0); %Eosinophils 0.1 % (0.0-10.0); %Lymphocytes 12.5 % (21.0-51.0); %Monocytes 6.7 % (0.0-10.0); %Neutrophils 80.6 % (42.0-75.0); Hemoglobin 11.6 g/dL (12.0-16.0); Mean Corpuscular HGB CONC 33.9 g/dL (32.0-36.0); Mean Corpuscular Hemoglobin 31.4 pg (27.0-31.0); Mean Corpuscular Volume 92.8 fL (78.0-98.0); Mean Platelet Volume 8.3 fL (7.4-10.4); Platelet Count 199 thou/uL (130-400); RBC Distribution Width 12.5 % (11.5-14.5); Red Blood Cell (RBC) Count 3.68 mill/uL (4.20-5.40); White Blood Cell (WBC) Count 9.6 thou/uL (4.8-10.8)
[2021-08-26 04:13] LABS: Anion Gap 12 mmol/L (10-20); BUN (Urea Nitrogen) 15 mg/dL (9.8-20.1); Calc. Creatinine Clearance 74 mL/min (70-130); Calcium 8.9 mg/dL (7.8-10.44); Carbon Dioxide 25 mmol/L (23-31); Chloride 105 mmol/L (98-107); Glucose 127 mg/dL (83-110); Potassium 3.7 mmol/L (3.5-5.1); Sodium 138 mmol/L (136-145)
[2021-08-26 04:14] LABS: Vancomycin, Random 8.5 ug/mL (See Comment)
[2021-08-26] MEDS: Budesonide 0.25 MG/2 ML NEB NEB SCH ×2 (07:10→18:16)
[2021-08-26] MEDS: Arformoterol 15 MCG/2 ML NEB NEB SCH ×2 (07:11→18:15)
[2021-08-26] MEDS: Losartan 25 MG TAB PO SCH (10:11)
[2021-08-26] MEDS: Carvedilol 3.125 MG TAB PO SCH ×2 (10:11→17:35)
[2021-08-26] MEDS: PARoxetine 20 MG TAB PO SCH (10:12)
[2021-08-26] MEDS: Polyethylene Glycol 3350 17 GM Packet PO SCH (10:12)
[2021-08-26] MEDS: Furosemide 40 MG TAB PO SCH (10:12)
[2021-08-26] MEDS: Cefepime 2 GM in Sodium Chloride 0.9% 100 ML IVPB SCH (10:17)
[2021-08-26] MEDS: Donepezil HCl 5 MG TAB PO SCH (20:20)
[2021-08-26] MEDS: Atorvastatin Calcium 40 MG TAB PO SCH (20:20)
[2021-08-27] MEDS: HYDROcodone/Acetaminophen 5/325 mg Tablet PO PRN ×2 (03:32→12:23)
[2021-08-27 04:52] LABS: Vancomycin, Trough 10.5 ug/mL
[2021-08-27] MEDS: VANCOMYCIN 1.25 GM/250 ML BAG 1.25 GM in Premix Bag 1 BAG IVPB SCH (05:06)
[2021-08-27] MEDS: Budesonide 0.25 MG/2 ML NEB NEB SCH ×2 (06:54→19:02)
[2021-08-27] MEDS: Arformoterol 15 MCG/2 ML NEB NEB SCH ×2 (06:54→19:02)
[2021-08-27] MEDS: Polyethylene Glycol 3350 17 GM Packet PO SCH (08:44)
[2021-08-27] MEDS: PARoxetine 20 MG TAB PO SCH (08:44)
[2021-08-27] MEDS: Furosemide 40 MG TAB PO SCH (08:45)
[2021-08-27] MEDS: Cefepime 2 GM in Sodium Chloride 0.9% 100 ML IVPB SCH (08:45)
[2021-08-27] MEDS: Losartan 25 MG TAB PO SCH (08:45)
[2021-08-27] MEDS: Carvedilol 3.125 MG TAB PO SCH ×2 (08:45→16:31)
[2021-08-27] MEDS: Clindamycin 150 MG CAP PO SCH (16:30)
[2021-08-27] MEDS: Donepezil HCl 5 MG TAB PO SCH (20:21)
[2021-08-27] MEDS: Atorvastatin Calcium 40 MG TAB PO SCH (20:21)
[2021-08-28] MEDS: Clindamycin 150 MG CAP PO SCH ×3 (00:01→16:34)
[2021-08-28] MEDS: Arformoterol 15 MCG/2 ML NEB NEB SCH ×2 (07:34→19:34)
[2021-08-28] MEDS: Budesonide 0.25 MG/2 ML NEB NEB SCH ×2 (07:35→19:35)
[2021-08-28 08:34] LABS: #Eosinphils 0.4 thou/uL (0.0-0.7); #Lymphocytes 1.9 thou/uL (1.20-3.40); #Monocytes 1.5 thou/uL (0.11-0.59); #Neutrophils 7.1 thou/uL (1.40-6.50); %Basophils 0.4 % (0.0-1.0); %Eosinophils 3.8 % (0.0-10.0); %Lymphocytes 17.5 % (21.0-51.0); %Monocytes 13.8 % (0.0-10.0); %Neutrophils 64.6 % (42.0-75.0); Mean Corpuscular HGB CONC 33.4 g/dL (32.0-36.0); Mean Corpuscular Hemoglobin 31.1 pg (27.0-31.0); Mean Corpuscular Volume 93.2 fL (78.0-98.0); Platelet Count 219 thou/uL (130-400); RBC Distribution Width 12.5 % (11.5-14.5); Red Blood Cell (RBC) Count 3.85 mill/uL (4.20-5.40)
[2021-08-28] MEDS: PARoxetine 20 MG TAB PO SCH (08:35)
[2021-08-28] MEDS: Carvedilol 3.125 MG TAB PO SCH ×2 (08:35→16:34)
[2021-08-28] MEDS: Furosemide 40 MG TAB PO SCH (08:35)
[2021-08-28] MEDS: Losartan 25 MG TAB PO SCH (08:35)
[2021-08-28] MEDS: Polyethylene Glycol 3350 17 GM Packet PO SCH (08:36)
[2021-08-28 09:00] LABS: ALT (SGPT) 15 U/L (8-55); AST (SGOT) 14 U/L (5-34); Albumin 3.1 g/dL (3.4-4.8); Alkaline Phosphatase 79 U/L (40-110); Anion Gap 12 mmol/L (10-20); BUN (Urea Nitrogen) 15 mg/dL (9.8-20.1); Bilirubin, Total 0.4 mg/dL (0.2-1.2); Calc. Creatinine Clearance 81 mL/min (70-130); Calcium 9.5 mg/dL (7.8-10.44); Carbon Dioxide 27 mmol/L (23-31); Chloride 105 mmol/L (98-107); Globulin 2.4 g/dL (2.4-3.5); Glucose 98 mg/dL (83-110); Potassium 3.1 mmol/L (3.5-5.1); Protein, Total 5.5 g/dL (5.8-8.1); Sodium 141 mmol/L (136-145)
[2021-08-28] MEDS ORDERED: Potassium Chloride 20 MEQ TAB PO SCH (13:00)
[2021-08-28] MEDS: Atorvastatin Calcium 40 MG TAB PO SCH (20:57)
[2021-08-28] MEDS: Donepezil HCl 5 MG TAB PO SCH (20:57)
[2021-08-28] MEDS: HYDROcodone/Acetaminophen 5/325 mg Tablet PO PRN ×2 (20:59)
[2021-08-29] MEDS: Clindamycin 150 MG CAP PO SCH ×4 (00:29→23:36)
[2021-08-29] MEDS: Budesonide 0.25 MG/2 ML NEB NEB SCH ×2 (06:50→23:56)
[2021-08-29] MEDS: Arformoterol 15 MCG/2 ML NEB NEB SCH ×2 (06:50→23:56)
[2021-08-29] MEDS: Losartan 25 MG TAB PO SCH (08:22)
[2021-08-29] MEDS: Furosemide 40 MG TAB PO SCH (08:22)
[2021-08-29] MEDS: Carvedilol 3.125 MG TAB PO SCH ×2 (08:22→18:04)
[2021-08-29] MEDS: PARoxetine 20 MG TAB PO SCH (08:23)
[2021-08-29] MEDS: Polyethylene Glycol 3350 17 GM Packet PO SCH ×2 (08:23→08:24)
[2021-08-29] MEDS: HYDROcodone/Acetaminophen 5/325 mg Tablet PO PRN ×2 (10:44→21:01)
[2021-08-29] MEDS ORDERED: Electrolyte Replacement Protocol 1 EACH FS SCH (19:30)
[2021-08-29] MEDS: Saccharomyces boulardii 250 MG CAP PO SCH (21:02)
[2021-08-29] MEDS: Donepezil HCl 5 MG TAB PO SCH (21:02)
[2021-08-29] MEDS: Atorvastatin Calcium 40 MG TAB PO SCH (21:02)
[2021-08-30] MEDS: Arformoterol 15 MCG/2 ML NEB NEB SCH ×2 (07:34→23:44)
[2021-08-30] MEDS: Budesonide 0.25 MG/2 ML NEB NEB SCH ×2 (07:34→23:45)
[2021-08-30 07:44] LABS: #Eosinphils 0.6 thou/uL (0.0-0.7); #Lymphocytes 2.1 thou/uL (1.20-3.40); #Neutrophils 4.6 thou/uL (1.40-6.50); %Basophils 0.3 % (0.0-1.0); %Eosinophils 6.7 % (0.0-10.0); %Lymphocytes 25.8 % (21.0-51.0); %Monocytes 11.5 % (0.0-10.0); %Neutrophils 55.6 % (42.0-75.0); Hemoglobin 11.7 g/dL (12.0-16.0); Mean Corpuscular HGB CONC 31.7 g/dL (32.0-36.0); Mean Corpuscular Hemoglobin 29.8 pg (27.0-31.0); Mean Platelet Volume 7.9 fL (7.4-10.4); Platelet Count 298 thou/uL (130-400); RBC Distribution Width 12.5 % (11.5-14.5); Red Blood Cell (RBC) Count 3.94 mill/uL (4.20-5.40); White Blood Cell (WBC) Count 8.3 thou/uL (4.8-10.8)
[2021-08-30 08:00] LABS: Anion Gap 11 mmol/L (10-20); BUN (Urea Nitrogen) 10 mg/dL (9.8-20.1); Calc. Creatinine Clearance 75 mL/min (70-130); Calcium 9.4 mg/dL (7.8-10.44); Carbon Dioxide 32 mmol/L (23-31); Chloride 102 mmol/L (98-107); Glucose 108 mg/dL (83-110); Magnesium 1.8 mg/dL (1.6-2.6); Phosphorus 3.6 mg/dL (2.3-4.7); Potassium 3.3 mmol/L (3.5-5.1); Sodium 142 mmol/L (136-145)
[2021-08-30] MEDS: Losartan 25 MG TAB PO SCH (08:14)
[2021-08-30] MEDS ORDERED: Potassium Chloride 20 MEQ TAB PO SCH (08:15)
[2021-08-30] MEDS ORDERED: Magnesium 2 GM/50 ML 2 GM in Premix Bag 1 BAG IVPB SCH (08:15)
[2021-08-30] MEDS: Clindamycin 150 MG CAP PO SCH ×3 (08:15→23:33)
[2021-08-30] MEDS: PARoxetine 20 MG TAB PO SCH (08:15)
[2021-08-30] MEDS: Carvedilol 3.125 MG TAB PO SCH ×2 (08:15→17:12)
[2021-08-30] MEDS ORDERED: Electrolyte Replacement Protocol FS PRN (08:15)
[2021-08-30] MEDS: Polyethylene Glycol 3350 17 GM Packet PO SCH (08:22)
[2021-08-30] MEDS: Saccharomyces boulardii 250 MG CAP PO SCH (21:31)
[2021-08-30] MEDS: Atorvastatin Calcium 40 MG TAB PO SCH (21:31)
[2021-08-30] MEDS: Acetaminophen 325 MG TAB PO PRN (21:31)
[2021-08-30] MEDS: Donepezil HCl 5 MG TAB PO SCH (21:31)
[2021-08-30] MEDS: HYDROcodone/Acetaminophen 5/325 mg Tablet PO PRN (23:33)
[2021-08-31] MEDS: Arformoterol 15 MCG/2 ML NEB NEB SCH ×2 (07:38→18:50)
[2021-08-31] MEDS: Budesonide 0.25 MG/2 ML NEB NEB SCH ×2 (07:39→18:50)
[2021-08-31] MEDS: Losartan 25 MG TAB PO SCH (08:26)
[2021-08-31] MEDS: Clindamycin 150 MG CAP PO SCH ×2 (08:26→15:57)
[2021-08-31] MEDS: Carvedilol 3.125 MG TAB PO SCH ×2 (08:27→16:01)
[2021-08-31] MEDS: PARoxetine 20 MG TAB PO SCH (08:27)
[2021-08-31] MEDS: Polyethylene Glycol 3350 17 GM Packet PO SCH (08:27)
[2021-08-31] MEDS: Atorvastatin Calcium 40 MG TAB PO SCH (19:53)
[2021-08-31] MEDS: Donepezil HCl 5 MG TAB PO SCH (19:53)
[2021-08-31] MEDS: Docusate 100 MG CAP PO PRN (19:54)
[2021-08-31] MEDS: Saccharomyces boulardii 250 MG CAP PO SCH (19:54)
[2021-08-31] MEDS: Acetaminophen 325 MG TAB PO PRN (19:54)
[2021-09-01] MEDS: Clindamycin 150 MG CAP PO SCH ×3 (01:10→15:59)
[2021-09-01] MEDS: HYDROcodone/Acetaminophen 5/325 mg Tablet PO PRN ×2 (01:10→10:32)
[2021-09-01] MEDS: Budesonide 0.25 MG/2 ML NEB NEB SCH ×2 (07:20→20:21)
[2021-09-01] MEDS: Arformoterol 15 MCG/2 ML NEB NEB SCH ×2 (07:20→20:21)
[2021-09-01] MEDS ORDERED: Aspirin 81 mg Enteric Coated Tablet PO SCH (09:45)
[2021-09-01] MEDS: Losartan 25 MG TAB PO SCH (10:09)
[2021-09-01] MEDS: Docusate 100 MG CAP PO PRN (10:11)
[2021-09-01] MEDS: Carvedilol 3.125 MG TAB PO SCH ×2 (10:13→16:02)
[2021-09-01] MEDS: PARoxetine 20 MG TAB PO SCH (10:16)
[2021-09-01] MEDS: Polyethylene Glycol 3350 17 GM Packet PO SCH (10:16)
[2021-09-01] MEDS: Saccharomyces boulardii 250 MG CAP PO SCH (20:36)
[2021-09-01] MEDS: Atorvastatin Calcium 40 MG TAB PO SCH (20:36)
[2021-09-01] MEDS: Donepezil HCl 5 MG TAB PO SCH (20:36)
[2021-09-02] MEDS: Clindamycin 150 MG CAP PO SCH ×2 (00:07→09:05)
[2021-09-02] MEDS: HYDROcodone/Acetaminophen 5/325 mg Tablet PO PRN (05:54)
[2021-09-02] MEDS: Budesonide 0.25 MG/2 ML NEB NEB SCH (07:42)
[2021-09-02] MEDS: Arformoterol 15 MCG/2 ML NEB NEB SCH (07:43)
[2021-09-02] MEDS ORDERED: Aspirin 81 mg Enteric Coated Tablet PO SCH (09:00)
[2021-09-02] MEDS: Losartan 25 MG TAB PO SCH (09:04)
[2021-09-02] MEDS: Carvedilol 3.125 MG TAB PO SCH (09:04)
[2021-09-02] MEDS: Polyethylene Glycol 3350 17 GM Packet PO SCH (09:06)
[2021-09-02] MEDS: PARoxetine 20 MG TAB PO SCH (09:09)
[2021-09-02 09:10] LABS: Anion Gap 11 mmol/L (10-20); BUN (Urea Nitrogen) 15 mg/dL (9.8-20.1); Calc. Creatinine Clearance 75 mL/min (70-130); Calcium 9.4 mg/dL (7.8-10.44); Carbon Dioxide 30 mmol/L (23-31); Chloride 106 mmol/L (98-107); Glucose 120 mg/dL (83-110); Potassium 3.9 mmol/L (3.5-5.1); Sodium 143 mmol/L (136-145)
[2021-09-02 12:50] LABS: SARS-CoV-2 PCR by NAA Not Detected (NotDetected)
[2021-09-02 12:59] VITALS: BP 155/81; TEMP 98.6
== END 2021-09-02 14:29 | DRG 572 ==
LOC: ERS 12:53 → T4-B 16:40
PROVIDERS: ADMIT Family Medicine; ATTEND Internal Medicine
PROC: 0JB90ZZ Excision of Buttock Subcutaneous Tissue and Fascia, Open Approach (ICD-10-PCS; principal; 2021-08-25)
DX: L03.317 Cellulitis of buttock (principal); L02.31 Cutaneous abscess of buttock; Z20.822 Contact with and (suspected) exposure to COVID-19; M06.9 Rheumatoid arthritis, unspecified; K21.9 Gastro-esophageal reflux disease without esophagitis; M81.0 Age-related osteoporosis without current pathological fracture; H04.123 Dry eye syndrome of bilateral lacrimal glands; G31.84 Mild cognitive impairment of uncertain or unknown etiology; J45.20 Mild intermittent asthma, uncomplicated; I25.10 Atherosclerotic heart disease of native coronary artery without angina pectoris; K59.00 Constipation, unspecified; E87.6 Hypokalemia; Z96.653 Presence of artificial knee joint, bilateral; F03.90 Unspecified dementia, unspecified severity, without behavioral disturbance, psychotic disturbance, mood disturbance, and anxiety; I12.9 Hypertensive chronic kidney disease with stage 1 through stage 4 chronic kidney disease, or unspecified chronic kidney disease; D53.9 Nutritional anemia, unspecified; N18.2 Chronic kidney disease, stage 2 (mild); E78.5 Hyperlipidemia, unspecified; E83.42 Hypomagnesemia; Z88.1 Allergy status to other antibiotic agents; Z88.8 Allergy status to other drugs, medicaments and biological substances; Z98.41 Cataract extraction status, right eye; Z79.82 Long term (current) use of aspirin; Z79.899 Other long term (current) drug therapy; Z90.49 Acquired absence of other specified parts of digestive tract; Z98.42 Cataract extraction status, left eye; Z90.710 Acquired absence of both cervix and uterus
CPT/HCPCS: 36415; 36416; 76999; 80048; 80053; 80202; 83605; 83735; 84100; 85025; 87040; 87070; 87077; 87149; 87186; 87205; 88304; 93005; 94640; 94760; 96365; 96367; J0692; J1100; J2405; J2704; J3010; J3370; J3475; J3480; J3490; J7626; S0028; U0003; U0005

== ENCOUNTER 2021-10-16 18:44 | Emergency (ER) | payer MEDICARE, BC ==
[2021-10-16 19:57] LABS: Hemoglobin 12.6 g/dL (12.0-16.0); Mean Corpuscular Hemoglobin 30.1 pg (27.0-31.0); Mean Corpuscular Volume 93.9 fL (78.0-98.0); Platelet Count 265 thou/uL (130-400); RBC Distribution Width 13.5 % (11.5-14.5); Red Blood Cell (RBC) Count 4.18 mill/uL (4.20-5.40); White Blood Cell (WBC) Count 6.3 thou/uL (4.8-10.8)
[2021-10-16 19:59] LABS: Bacteria/HPF 4+ HPF (None Seen); Bilirubin Negative (Negative); Blood, Urine Negative (Negative); Clarity Turbid (Clear); Glucose, Urine (Dipstick) Normal (Negative); Ketone, Urine Negative (Negative); Leukocyte 500 Leu/uL (Negative); Nitrite Negative (Negative); Protein, Urine (Dipstick) 30 mg/dL (Neg-Trace); Renal Epithelial 0-3 HPF (None Seen); Specific Gravity, Urine 1.016 (1.002-1.036); Squamous Epithelial 0-3 HPF (0-3); Urobilinogen Normal mg/dL (Less than 2); WBC/HPF Greater than 50 HPF (0-3)
[2021-10-16 20:00] LABS: RBC/HPF 0-3 HPF (0-3)
[2021-10-16 20:18] LABS: ALT (SGPT) 27 U/L (8-55); AST (SGOT) 30 U/L (5-34); Albumin 3.8 g/dL (3.4-4.8); Alkaline Phosphatase 91 U/L (40-110); Anion Gap 12 mmol/L (10-20); BUN (Urea Nitrogen) 14 mg/dL (9.8-20.1); Bilirubin, Total 0.4 mg/dL (0.2-1.2); Calc. Creatinine Clearance 0 mL/min (70-130); Calcium 9.6 mg/dL (7.8-10.44); Carbon Dioxide 29 mmol/L (23-31); Chloride 103 mmol/L (98-107); Globulin 2.4 g/dL (2.4-3.5); Glucose 100 mg/dL (83-110); Potassium 3.3 mmol/L (3.5-5.1); Protein, Total 6.2 g/dL (5.8-8.1); Sodium 141 mmol/L (136-145)
[2021-10-16 20:23] LABS: Band 12 % (5-11); Burr Cells SLIGHT = 2-5 cells (100X) (0-1/hpf); Eosinophils 3 % (0-10); Lymphocytes 31 % (21-51); MDiff Complete? YES; Monocytes 16 % (0-10); Neutrophil 33 % (42-75); Ovalocytes SLIGHT = 2-5 cells (100X) (0-1/hpf); Platelet Morphology Comment Appears Adequate; Polychromasia SLIGHT = 2-3 cells (100X) (0-2/hpf); Reactive Lymphocytes 4 % (0-10)
[2021-10-16] MEDS ORDERED: Cephalexin 250 MG CAP ONE (21:00)
== END 2021-10-16 21:11 | disposition home or self-care (01) ==
LOC: ERS 18:44
DX: N39.0 Urinary tract infection, site not specified (principal); I44.7 Left bundle-branch block, unspecified; K21.9 Gastro-esophageal reflux disease without esophagitis; I10 Essential (primary) hypertension; E78.5 Hyperlipidemia, unspecified; J45.909 Unspecified asthma, uncomplicated; M06.9 Rheumatoid arthritis, unspecified
CPT/HCPCS: 36415; 70450; 71045; 80053; 81003; 81015; 84443; 84484; 85025; 93005

== ENCOUNTER 2022-02-16 10:01 | Emergency (ER) | payer MEDICARE, BC ==
[2022-02-16] MEDS ORDERED: Lidocaine 1% PF 5 ML VIAL ONE (11:18)
[2022-02-16] MEDS ORDERED: Boostrix 0.5 ML (Tdap) VIAL ONE (12:39)
== END 2022-02-16 13:10 | disposition home or self-care (01) ==
LOC: ERS 10:01
DX: N76.4 Abscess of vulva (principal); K21.9 Gastro-esophageal reflux disease without esophagitis; E78.5 Hyperlipidemia, unspecified; I10 Essential (primary) hypertension; M06.9 Rheumatoid arthritis, unspecified; J45.909 Unspecified asthma, uncomplicated; Z23 Encounter for immunization
CPT/HCPCS: 56405; 90471; 90715

== ENCOUNTER 2022-02-16 14:23 | Emergency (ER) | payer MEDICARE, BC | END 2022-02-16 16:05 | disposition home or self-care (01) | LOC: ERS 14:23 | DX: N76.4 Abscess of vulva (principal); E11.9 Type 2 diabetes mellitus without complications; D64.9 Anemia, unspecified; E78.5 Hyperlipidemia, unspecified; E78.00 Pure hypercholesterolemia, unspecified; M19.90 Unspecified osteoarthritis, unspecified site; J44.9 Chronic obstructive pulmonary disease, unspecified; G47.30 Sleep apnea, unspecified; K21.9 Gastro-esophageal reflux disease without esophagitis; I10 Essential (primary) hypertension; M06.9 Rheumatoid arthritis, unspecified; Z79.899 Other long term (current) drug therapy | CPT/HCPCS: 99283 ==